=== PATIENT | female | born 1990 | race Caucasian/White ===

== ENCOUNTER 2023-04-23 09:00 | Outpatient (RCR) | payer BC, SELFPAY ==
--- NOTE | 2023-03-19 12:55 | HP.PTEVAL_ITS ---
Patient's Visit Information Visit Information Visit Information: MOI FELDER is a 32 year old F referred to Physical Therapy by Dr. Gladis Schultz MD with a diagnosis of CYSTOCELE, STRESS INCONTINENCE. Date of Evaluation: 03/19/23 Physical Therapist: Dianna Schmitz PT, Cert MDT Visit Plan Frequency: 1x/Week Duration: 2-4 Months Plan: *CHECK AUTH* PF THERAPY FOR STRENGTHENING, LENGTHENING/RELAXATION AND ENDURANCE TRAINING. URINARY URGE AND FREQUENCY EDUCATION. HEALTHY BLADDER HABIT EDUCATION. TRAINING IN COORDINATION OF PELVIC FLOOR MUSCULATURE WITH HIP AND CORE (TRANSVERSE ABDOMINUS) MUSCULATURE. CORE STRENGTHENING. BHARTI LE ROM, STRETCHING AND STRENGTHENING. TRAINING IN ABDOMINAL CAVITY PRESSURE MGMT WITH ADL'S. 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 Present symptoms: FEELING OF INCOMPLETE BLADDER EMPTYING AND FEELING OF BULGING IN THE VAGINAL AREA. UI WITH JUMPING, JOGGING AND SQUATTING (MORE CHRONIC). PATIENT DENIES PAIN. Present since: ABOUT 6 MO AGO (HAPPENED TO BE MOVING). Pain Scale: N/A Is it getting better, worse or staying the same: GETTING WORSE Commenced as a result of: NO APPARENT REASON Symptoms at onset: LEAKING WITH ACTIVITIES Disturbed sleep: GETTING UP TO URINATE 0-1 TIMES A NIGHT Previous history/Previous treatment: UNREMARKABLE Treatment this episode: DISCUSSED PESSARY AND SURGERY BUT RECOMMENDED TO TRY PT FIRST. Coughing/sneezing/straining: POSITIVE FOR UI Gait: NORMAL How long can you delay the need to urinate: 10 MINUTES Prolapse (Falling out feeling): YES Frequency of Urination: APPROX EVERY 1-2 HOURS Ability to stop urine flow: PARTIALLY Ability to initiate urine stream: NO Dyspareunia: NO Bowel Incontinence: SOME SMEARING. PATIENT REPORTS DR. SCHULTZ ALSO TOLD HER SHE HAS A GRADE 3 RETROCELE. Accidents: NO Unexplained weight loss: NO Imaging: US SHOW GOOD BLADDER EMPTYING PER PATIENT REPORT. PMH/Recent major surgery: ANXIETY, HS - SKIN CONDITION. ACL REPAIR R 2006. BHARTI Fallopian Tube Removal and Uterine Ablation 2020. OTHER: PHYSICIAN RESTRICTION - NO LIFTING > 30 LBS. 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 Objective Objective: Sitting/Standing Posture: FAIR. NORMAL LORDOSIS. NO RELEVANT LATERAL SHIFT. Other Observations: INDEP GAIT AND TRANSFERS. Sensory deficit: BHARTI LE LIGHT TOUCH SENSATION GROSSLY INTACT AND SYMMETRICAL ROM deficit: PATIENT IS generally HYPERMOBILE. Motor deficit: POOR CORE STRENGTH. BHARTI LE STRENGTH GROSSLY 5/5 WITH MMT'ING EXCEPT HIPS 4/5. Dural Signs: NEGATIVE BHARTI LE'S. Lumbar mvmt loss: flex - NIL ext - MOD R SG - NIL L SG - NIL Core strength: POOR FUNCTIONAL SCREEN: Incontinence Impact Questionnaire Score: 5 Urogenital Distress Inventory Score: 17 Goals Goal 1:: DECREASE URINARY LEAKAGE EPISODES TO ONE OR LESS PER DAY Goal Time Frame: 6-8 Weeks Goal 2:: PATIENT WILL SUCCESSFULLY DELAY VOIDING LONG NEEDED WHEN URGENCY OCCURS TO SUCCESSFULLY MAKE IT TO THE BATHROOM. Goal Time Frame: 6-8 Weeks Goal 3:: PATIENT WILL DEMONSTRATE/COMMUNICATE 10 CONSISTENT AND CONSECUTIVE 10 SECOND PELVIC FLOOR MUSCLE CONTRACTIONS TO DEMONSTRATE IMPROVED PELVIC FLOOR ENDURANCE. Goal Time Frame: 8-12 Weeks Goal 4:: DEVELOP HEALTHY FLUID INTAKE HABITS WITH FLUID INTAKE OF ? BODY WEIGHT IN OUNCES PER DAY AND 2/3 BEING WATER. Goal Time Frame: 2-4 Weeks Goal 5:: NORMALIZE VOIDING FREQUENCEY TO EVERY 3-4 HOURS. Goal Time Frame: 4-6 Weeks Goal 6:: PATIENT WILL BE INDEP WITH A HEP/HOME INSTRUCTIONS FOR CONTINUED IMPROVEMENT ONCE FORMAL PHYSICAL THERAPY CONCLUDES. Goal Time Frame: 8-12 Weeks Anticipated Interventions Patient/Client Instruction: Educate patient on: Condition, Plan of Care and Risk Factors For the Purpose of:: To improve self management Therapeutic Exercise to Include: Strength training, Endurance training, Neuromotor development and Dynamic Lumbar Stabilization For the Purpose of:: To improve muscle performance and motor function, To increase tolerance to activity/condition/position and To improve ability of physical actions for home/community/work/leisure Manual Therapy Techniques to Include: Soft tissue mobilization and Other Comment: BIOFEEDBACK AND STRETCHING IF NEEDED For the Purpose of:: To improve muscle performance and motor function Other: TO RELAX PELVIC FLOOR IF NEEDED Text: Thank you for the opportunity to evaluate your patient. For Medicare and Medicare HMO plans, please review the plan of care and approve it. It will need to be FAXED BACK to us at [phone] for Medicare purposes. For Medicare only, by signing this I certify the plan of care. Please let me know if there are questions or concerns regarding this plan of care. Physician Signature: Date:
== END 2023-04-23 19:00 | disposition home or self-care (01) ==
LOC: PT 09:00
PROVIDERS: Referring Provider Urology; Visit Provider Urology
DX: N81.10 Cystocele, unspecified (principal); N39.3 Stress incontinence (female) (male)
CPT/HCPCS: 97162; 97530